=== PATIENT | female | born 1950 | race Caucasian/White ===

== ENCOUNTER 2019-02-28 19:48 | Emergency (ER) | payer MEDICARE ==
[2019-02-28 19:59] VITALS: BP 155/88
--- NOTE | 2019-02-28 20:28 | UC ---
Skin Complaint HPI - HPI Summary HPI Summary: Tick noted at R hip today. she thinks its been attached <24hrs b/c she felt the prick when she thinks it bit her. - History of Current Complaint Chief Complaint: [facility] Time Seen by Provider: 02/28/19 20:26 Stated Complaint: TICK BITE Hx Obtained From: Patient Pain Intensity: 5 Pain Scale Used: 0-10 Numeric - Allergy/Home Medications Allergies/Adverse Reactions: Allergies Allergy/AdvReac Type Severity Reaction Status Date / Time No Known Allergies Allergy Verified 02/28/19 19:59 Home Medications: Home Medications Levothyroxine TAB* [Synthroid 75 MCG TAB*] 75 mcg PO DAILY 02/28/19 [History Confirmed 02/28/19] Lisinopril TAB* [Prinivil TAB 10 MG*] 10 mg PO DAILY 02/28/19 [History Confirmed 02/28/19] PMH/Surg Hx/FS Hx/Imm Hx Endocrine History: Thyroid Disease Cardiovascular History: Hypertension - Surgical History Surgical History: None - Social History Alcohol Use: None Substance Use Type: None Smoking Status (MU): Never Smoked Tobacco Review of Systems All Other Systems Reviewed And Are Negative: Yes Constitutional: Negative: Fever, Chills Skin: Positive: Other - tick bite R hip Physical Exam Triage Information Reviewed: Yes Appearance: Well-Appearing Vital Signs: Initial Vital Signs Temp 97.7 F 02/28/19 19:54 Pulse 70 02/28/19 19:54 Resp 18 02/28/19 19:54 BP 155/88 02/28/19 19:54 Pulse Ox 98 02/28/19 19:54 Vital Signs Reviewed: Yes Skin: Positive: Other - R flank has Course/Dx - Course Course Of Treatment: R flank had nonengorged tick which pt. removed on her own. Head of tick still in skin which should slowly make its way out. No target lesion on exam, CDC recommendation of 200mg one time dose of doxy given. she will f/u w/ pcp if new issues arise. blood pressure elevated and should f/u w/ pcp. - Differential Diagnoses - Skin Complaint Differential Diagnoses: Tick Born Illness, Other - Diagnoses Provider Diagnosis: Tick bite Discharge - Sign-Out/Discharge Documenting (check all that apply): Patient Departure All imaging exams completed and their final reports reviewed: No Studies - Discharge Plan Condition: Good Disposition: HOME Patient Education Materials: Tick Bite (ED) Referrals: Donn Hutson MD [Primary Care Provider] - Additional Instructions: Your blood pressure is elevated, please follow up with your pcp. - Billing Disposition and Condition Condition: GOOD Disposition: Home
[2019-02-28] MEDS ORDERED: DOXYcycline CAP(*) 100 MG PO ONE (20:38)
== END 2019-02-28 20:50 | disposition home or self-care (01) ==
LOC: UCEAST 19:48
DX: S70.261A Insect bite (nonvenomous), right hip, initial encounter (principal); W57.XXXA Bitten or stung by nonvenomous insect and other nonvenomous arthropods, initial encounter; Y92.9 Unspecified place or not applicable; E07.9 Disorder of thyroid, unspecified; I10 Essential (primary) hypertension
CPT/HCPCS: 99202; A9270-GY; G0463